=== PATIENT | male | born 1965 | race Two or more races ===

== ENCOUNTER 2016-11-21 08:21 | Day surgery (SDC) | payer OTHER ==
[~2016-11-21 08:21] MED LIST: LACTATED RINGERS 1,000 ML IV SCH
[2016-11-21] MEDS ORDERED: IV START KIT ONE (08:53)
[2016-11-21] MEDS ORDERED: LACTATED RINGERS 1,000 ML ONE (08:53)
[2016-11-21] MEDS ORDERED: FENTANYL 100 MCG/2 ML VIAL ONE (09:13)
[2016-11-21] MEDS ORDERED: PROPOFOL 20 ML IV ONE (09:14)
== END 2016-11-21 12:20 | disposition home or self-care (01) ==
LOC: SDC 08:21
PROVIDERS: ATTEND Internal Medicine Gastroenterology
PROC: 0DJD8ZZ Inspection of Lower Intestinal Tract, Via Natural or Artificial Opening Endoscopic (ICD-10-PCS; principal; 2016-11-21)
DX: Z12.11 Encounter for screening for malignant neoplasm of colon (principal); Z87.891 Personal history of nicotine dependence
CPT/HCPCS: 45378; J3010; J7120